=== PATIENT | female | born 1945 | race Caucasian/White ===

== ENCOUNTER 2022-06-03 04:51 | Emergency (ER) | payer MEDICARE, SELFPAY ==
[2022-06-03 05:02] VITALS: BP 122/78; PULSE 78; RESP 16; TEMP 36.7; O2SAT 98; BMI 16.3
--- NOTE | 2022-06-03 05:17 | CRLHL7_ITS ---
For Patients: As a result of the Cures Act, medical imaging exams and procedure reports are released immediately into your electronic medical record. You may view this report before your referring provider. If you have questions, please contact your health care provider. Indication: Pain, swelling and warmth. Question infection? Question foreign body? Technique: A total of three views of the left wrist were acquired. Comparison: None Findings: Bones: Demineralized osseous structures. No bone destruction or other findings of osteomyelitis Joint spaces: Severe osteoarthritis at the 1st carpometacarpal joint. Remodeling deformity the scaphoid. Mild widening of the scapholunate interval, likely chronic. Soft tissues: Soft tissue swelling especially around the thumb. No gas within soft tissues. No radiopaque foreign body. Chondrocalcinosis of the TFCC. Impression: 1. There is no plain film evidence of osteomyelitis. 2. Chronic osseous changes light field degenerative as described above. 3. Soft tissue swelling. No gas within soft tissues. No radiopaque foreign body. Dictated by Teddy Cline MD @ 06/03/2022 6:12:20 AM (Electronically Signed)
[2022-06-03 05:34] LABS: Basophils Percent Auto 2.2 % (0.0-3.0); Eosinophils Percent Auto 5.2 % (0.0-7.0); Hematocrit 31.4 % (33.0-51.0); Hemoglobin* 10.9 gm/dL (12.0-16.0); Immature Granulocytes Pct Auto 0.4 %; Lymphocytes Percent Auto 26.6 % (20-44); Mean Corpuscular HGB Conc 35 gm/dL (32-36); Mean Corpuscular Hemoglobin 35 pg (26-34); Mean Corpuscular Volume 101 fL (80-100); Monocytes Percent Auto 33.9 % (0.0-11.0); Neutrophils Percent Auto 31.7 % (42.0-72.0); Platelet Count* 270 K/uL (140-440); RDW Coefficient of Variation % 12.6 % (11.5-15.5); Red Blood Count 3.12 m/uL (4.00-5.20); White Blood Count* 2.71 K/uL (4.50-11.00)
[2022-06-03 05:43] LABS: Slide Review Reflex No
--- OUTSIDE RECORDS SUMMARY | 2022-06-03 05:46 | XMS_ITS | Continuity of Care Document ---
Author Name Unknown Organization [facility] Address [address] [address] [place] [address] Phone Care Team Providers Care Master Printer Name Role Phone Emelina Manzano CRNA Unavailable Unavailable Allergies, Adverse Reactions, Alerts Substance Reaction Status Criticality oxycodone Active No Information bacitracin Active No Information Medications Medication Instructions Dosage Effective Dates (start - stop) Status Comments Remeron 15 mg tablet take 0.5 Tablet by oral route every day before bedtime 7.5 MG - Active Dulcolax (bisacodyl) 5 mg tablet,delayed release Take 2 tablets per colonoscopy prep instructions - Active Procedure on 11/26/21 Miralax 17 gram/dose oral powder Take as directed by the colon prep instructions received from [facility] - Active Procedure on 11/26/21. sodium bicarbonate 650 mg tablet - Active ranitidine 150 mg capsule take 1 capsule by ORAL route 2 times every day - Active Colazal 750 mg capsule take 3 capsule by oral route 3 times every day for 8 weeks 2250 MG - Active Multiple Vitamins tablet take 1 tablet by oral route every day with food - Active Calcet Creamy Bites 500 mg calcium-400 unit chewable tablet take 1 Tablet by Oral route every day - Active Vitamin D3 2,000 unit tablet take 1 Tablet by Oral route every day 1 Tablet - Active niacin 500 mg tablet take 1 tablet by ORAL route every day 500 MG - Active iron ER 325 mg (65 mg iron) capsule,extended release take 1 Capsule by Oral route every day - Active Procedures Procedure Date Colonoscopy Flex; W/bx 1/mx Level Iv-surg Path Gross/micro 22 Colonoscopy Flex; W/bx 1/mx Level Iv-surg Path Gross/micro 19 Colonoscopy Flex; W/bx 1/mx Level Iv-surg Path Gross/micro 17 Advance Directives Directive Yes / No Effective Date File Name No Information Encounters Encounter Description Practice Location Reason(s) For Visit Diagnoses Date Provider Providers Copied on Encounter [facility], [address] [address], [place], [place], [id number], [place] tel:[phone] [facility] No Information 2 Jose Juan SUSANNA Emelina. [address] [facility], [place], [place], [id number] , [place]. tel: [phone] Referring Provider: Matty Carvajal MD , [address] [facility] [address], [place], [address]. tel:[phone] [facility], [address] [address], [place], [place], [address], [place] tel:[phone] [facility] GI Symptoms or Concerns (chief complaint) Ulcerative colitis, unspecified, without complicationsEn counter for screening for malignant neoplasm of colonUlcerative colitis, unspecified, without complications 2 Wei Starr. [address] [facility], [place], [place], [address] , [place]. tel: [phone] Betzy Vargas MD. [phone] ng Provider: Referral Self. [facility], [address] [address], [place], [place], [address], [place] tel:[phone] [facility] No Information 2 Wei Starr. [address] [facility], [place], [place], [address] , [place]. tel: [phone] [facility], [address] [address], [place], [address], [place] tel:[phone] [facility] Ulcerative colitis, unspecified, without complicationsUl cerative colitis, unspecified, without complications 9 Wie Starr. [address] [place] [address], [facility] [address], [place], [place], [address] , [place]. tel:[phone] Betzy Vargas MD. tel:[phone] ng Provider: Betzy Knapp, [address] [facility], [place], [address]. [phone] [facility], [address] [address], [facility] [place] [address], [place] tel:[phone] [facility] Ulcerative colitis without complications, unspecified locationEncount er for screening for malignant neoplasm of colonUlcerative colitis, unspecified, without complications Wei Starr. [address] [place] [address], [facility] [address], [place], [place], [address] , [place]. tel:[phone] Referring Provider: Moses Mccabe, [address] [facility], [place], [address]. [phone] Family History Family Member Type Diagnosis Age At Onset Father Problem (finding) Mother Problem (finding) Mother Problem (finding) Irritable bowel syndrom e Daughter Problem (finding) Colon polyps Immunizations Vaccine Date Status Comments influenza, high-dose seasona l, quadrivalent, .7mL dose, preservative free administered Note: [facility] bi-direct ional interface ; Source: Other Registry SARS-COV-2 (COVID-19) vaccin e, mRNA, spike protein, LNP, bivalent booster, preservative free, 50 mcg/0.5 mL or 25 mcg/0.25 mL dose administered Note: [facility] bi-direct ional interface ; Source: Other Registry SARS-COV-2 (COVID-19) vaccin e, mRNA, spike protein, LNP, preservative free, 30 mcg/0.3mL dose administered Note: [facility] bi-direct ional interface ; Source: Other Registry influenza, high-dose seasona l, quadrivalent, .7mL dose, preservative free administered Note: [facility] bi-direct ional interface ; Source: Other Registry SARS-COV-2 (COVID-19) vaccin e, mRNA, spike protein, LNP, preservative free, 30 mcg/0.3mL dose administered Note: [facility] bi-direct ional interface ; Source: Other Registry SARS-COV-2 (COVID-19) vaccin e, mRNA, spike protein, LNP, preservative free, 30 mcg/0.3mL dose administered Note: [facility] bi-direct ional interface ; Source: Other Registry SARS-COV-2 (COVID-19) vaccin e, mRNA, spike protein, LNP, preservative free, 30 mcg/0.3mL dose administered Note: [facility] bi-direct ional interface ; Source: Other Registry influenza, seasonal vaccine, quadrivalent, adjuvanted, .5mL dose, preservative free administered Note: [facility] bi-di rectional interface ; Source: Other Registry Seasonal trivalent influenza vaccine, adjuvanted, preservative free administered Note: [facility] bi-direct ional interface ; Source: Other Registry Seasonal trivalent influenza vaccine, adjuvanted, preservative free administered Note: [facility] bi-direct ional interface ; Source: Other Registry zoster vaccine recombinant administered N ote: [facility] bi-directional interface ; Source: Other Registry zoster vaccine recombinant administered N ote: [facility] bi-directional interface ; Source: Other Registry Prevnar administered Note: [facility] bi-d irectional interface ; Source: Other Registry Pneumovax administered Note: [facility] bi-d irectional interface ; Source: Other Registry tetanus toxoid, reduced diphtheria toxoid, and acellular pertussis vaccine, adsorbed administered Note: [facility] b i-directional interface ; Source: Other Registry yellow fever vaccine administered Note: [facility] bi-directional interface ; Source: Other Registry zoster vaccine, live administered Note: [facility] bi-directional interface ; Source: Other Registry Payers Payer name Insurance type Covered green party ID Authoriza tibuffy(s) [employer] Medicare MB [id number] Social History Type Description Quantity Date Captured Comments Sex Female Smoking Status No Information Chief Complaint And Reason For Visit No Information Reason For Referral Reason For Referral No Information Plan Of Treatment Date Type Action Status No Information History Of Present Illness Encounter Date Complaint History Of Prese nt Illness GI Symptoms or Concerns Functional Status Date Functional Assessmen t No Information Instructions Date Instruction Additional Infor mation Colon Cancer Prevention Related to Ulcerative colitis, unspecified, without complications Assessments Type Assessment Date No Information Patient Care Teams Name Effective Dates (start - stop) Status Members No Information
--- OUTSIDE RECORDS SUMMARY | 2022-06-03 05:47 | XMS_ITS | Continuity of Care Document ---
Author Name Unknown Organization [facility] Address [address] [address] [place] [address] Phone Care Team Providers Care Convex Grinder Operator Name Role Phone Emelina Manzano CRNA Unavailable [...] by the colon prep instructions received from [facility] - Active Procedure on 11/26/21. [...] Diagnoses Date Provider Providers Copied on Encounter [facility], [address] [address], [place], [place], [id number], [place] tel:[phone] [facility] No Information 2 Jose Juan SUSANNA Emelina. [address] [facility], [place], [place], [address] , [place]. tel: [phone] Referring Provider: Matty Carvajal MD , [address] [facility] [address], [place], [address]. tel:[phone] [facility], [address] [address], [place], [place], [address], [place] tel:[phone] [facility] GI Symptoms or Concerns (chief complaint) Ulcerative colitis, unspecified, without complicationsEn counter for screening for malignant neoplasm of colonUlcerative colitis, unspecified, without complications 2 Wei Starr. [address] [facility], [place], [place], [address] , [place]. tel: [phone] Betzy Vargas MD. [phone] ng Provider: Referral Self. [facility], [address] [address], [place], [place], [address], [place] tel:[phone] [facility] No Information 2 Wei Starr. [address] [facility], [place], [place], [address] , [place]. tel: [phone] [facility], [address] [address], [place], [address], [place] tel:[phone] [facility] Ulcerative colitis, unspecified, without complicationsUl cerative colitis, unspecified, without complications 9 Wei Starr. [address] [place] [address], [facility] [address], [place], [place], [address] , [place]. tel:[phone] Betzy Vargas MD. tel:[phone] ng Provider: Betzy Knapp, [address] [facility], [place], [address]. [phone] [facility], [address] [address], [facility] [place], [address], [place] tel:[phone] [facility] Ulcerative colitis without complications, unspecified locationEncount er for screening for malignant neoplasm of colonUlcerative colitis, unspecified, without complications Wei Starr. [address] [place] [address], [facility] [address], [place], [place], [address] , [place]. tel:[phone] Referring Provider: Moses Mccabe, [address] [facility], [place], [address]. [phone] Family History Family Member Type Diagnosis Age [...] party ID Authoriza tibuffy(s) [employer] Medicare MB [id number] Social History Type Description Quantity Date Captured [...]
[2022-06-03 05:48] LABS: Chloride* 100 mmol/L (96-114)
[2022-06-03 05:49] LABS: Potassium* 4.2 mmol/L (3.6-5.1); Sodium* 129 mmol/L (135-149)
[2022-06-03 05:51] LABS: Creatinine* 0.5 mg/dL (0.5-1.5); Est. Creatinine Clearance* 30.54; Estimated Glomerular Filt Rate 96 ml/min
[2022-06-03 05:52] LABS: Blood Urea Nitrogen* 16 mg/dL (7-30); Carbon Dioxide* 23 mmol/L (20-32)
[2022-06-03 05:53] LABS: Calcium* 8.8 mg/dL (8.4-10.6); Glucose* 138 mg/dL (60-115)
[2022-06-03 05:55] LABS: C Reactive Protein* 2.3 mg/dL (0.5-1.0)
[2022-06-03 06:09] LABS: Erythrocyte SedimentationRate* 36 mm/hr (2-20)
[2022-06-03] MEDS: KETOROLAC 30 MG/ML inj IVP (06:29)
--- NOTE | 2022-06-03 06:39 | ED.NURSE ---
patient assisted to the bathroom. Patient independent but needed help pulling her pants back up and tying them.
[2022-06-03 07:40] LABS: Uric Acid* 4.2 mg/dL (2.2-8.4)
[2022-06-03 08:39] LABS: Mononuclear WBC Body Fluid* 62 %; Polynuclear WBC Body Fluid* 38 %; RBC, Body Fluid* 7000 Cells/uL; WBC, Body Fluid* 3934 Cells/uL
[2022-06-03 08:40] LABS: BF Clarity* Slightly Cloudy; BF Color Blood Tinged
[2022-06-03 08:41] LABS: BF Total Volume* 0.25
[2022-06-03 08:57] VITALS: BP 122/78; PULSE 78; RESP 16; TEMP 36.7
--- NOTE | 2022-06-03 16:24 | ED.GENADULT ---
HPI - General Adult General Chief complaint: Skin/Abscess/Foreign Body Stated complaint: swollen left hand Time Seen by Provider: 06/03/22 05:10 History of Present Illness HPI narrative: 76-year-old woman presenting to the emergency department with concern of right wrist pain and swelling worsening over the last 3 days. She does endorse that sometimes she has slept on it funny and it will cause pain. Unclear if also swollen at that time. She is not sure what happened here. It is just throbbing and pulsing in significant pain. Has tried acetaminophen. Was seen yesterday in clinic and with apparent concern of cellulitis was given a shot of Rocephin and initiated on cephalexin. She has had now I believe 4 doses of cephalexin. With more pain and swelling was recommended to come to the emergency department sounds like for consideration of IV antibiotics. More recent history also [place] right arm. This apparently has been healing well. She also sustained a small point of injury to the proximal palm of her left hand. Does not believe that there was a retained foreign body. She is expressing some concern that now is having some discomfort radiating into the distal left forearm. She has not had a fever. Does not have a diagnosis of rheumatoid or gout. Does have osteoarthritis and osteopenia. Daughter is a physician in local clinic. Jaky does arrive here with her . Related Data Home Medications Medication Instructions Recorded Confirmed balsalazide 750 mg capsule 750 mg PO DAILY 06/03/22 06/03/22 cephalexin 500 mg capsule 500 mg PO QID 06/03/22 06/03/22 gabapentin 100 mg capsule 100 mg PO 3XD 06/03/22 06/03/22 mirtazapine 15 mg tablet 15 mg PO QPM 06/03/22 06/03/22 Previous Rx's Medication Instructions Recorded celecoxib 100 mg capsule (Celebrex) 100 mg PO BID #30 caps 06/03/22 Allergies Allergy/AdvReac Type Severity Reaction Status Date / Time bacitracin AdvReac Verified 06/03/22 05:05 oxycodone [From OxyContin] AdvReac Verified 06/03/22 05:05 Review of Systems Status of ROS: Reports: 6 or more systems reviewed and unremarkable except as noted in History and below PFSH PFSH Social History Do you use any of these nicotine containing products: None Non-prescribed substance use: denies use Exam Narrative: Exam Narrative: Pleasant. NAD. Fully alert. Favoring the left wrist. Breathing easily. Exam of the skin shows some small healing abrasions with mild appropriate surrounding inflammatory changes on the right forearm. Generally quite thin in her arms. The left arm without notable abrasions. There is a sub cm area of erythema in the proximal palmar crease apparently sustained from the fall. I do not see surrounding inflammatory changes nor palpate any foreign body. The left wrist however is rather swollen, soft. Warm. Extends to the dorsum of the hand as well and may be even to the fingers. Any manipulation of the wrist does cause a good deal of pain. More erythema is around the base of the thumb. I do not appreciate induration of the skin though. Changes I think appear to be primarily related to a joint effusion. Const: Vital Signs, click to edit/add: Vital Signs - 24 hr 06/03/22 05:02 06/03/22 08:57 Temperature 98.1 F 98.1 F Pulse Rate [Left P ulse Oximeter] 78 78 Respiratory Rate 16 16 Blood Pressure [Le ft Upper Arm] 122/78 122/78 Pulse Oximetry 98 Oxygen Delivery Me thod Room Air Documenting provider has reviewed patient's vital signs: yes Course Vital Signs Vital signs: Initial Vital Signs Temperature 98.1 F 06/03/22 05:02 Temperature Source Temporal Artery Scan 06/03/22 05:02 Pulse Rate 78 06/03/22 05:02 Pulse Rhythm Regular 06/03/22 05:02 Respiratory Rate 16 06/03/22 05:02 Blood Pressure 122/78 06/03/22 05:02 Blood Pressure Mean 92 06/03/22 05:02 Blood Pressure Position Sitting 06/03/22 05:02 Pulse Oximetry 98 06/03/22 05:02 Oxygen Delivery Method Room Air 06/03/22 05:02 Vital Signs Temperature 98.1 F 06/03/22 05:02 Pulse Rate 78 06/03/22 05:02 Respiratory Rate 16 06/03/22 05:02 Blood Pressure 122/78 06/03/22 05:02 Pulse Oximetry 98 06/03/22 05:02 Oxygen Delivery Method Room Air 06/03/22 05:02 Temperature 98.1 F 06/03/22 08:57 Pulse Rate 78 06/03/22 08:57 Respiratory Rate 16 06/03/22 08:57 Blood Pressure 122/78 06/03/22 08:57 Pulse Oximetry 98 06/03/22 05:02 Oxygen Delivery Method Room Air 06/03/22 05:02 Medical Decision Making MDM Narrative Medical decision making narrative: While the wrist is certainly swollen and warm, does not have the redness and induration directly of the skin that I might associate with cellulitis. I also do not think that has the degree of discomfort that I would anticipate with his degree of swelling from a potentially septic joint. She does not have fever either. I think this is an inflamed joint more related to osteoarthritis. I think x-rays would be helpful looking for fracture that may have been more occult sustained in the fall. Will be checking labs against yesterdays. However will place IV in area that might be sustained if needed outpatient IV antibiotics. Was given ketorolac here in the emergency department; this did not appear to affect pain whole lot. Labs are similar to yesterday. Reviewing records shows chronically lower white count and some hyponatremia similar to prior. CRP is similar to yesterday and ESR at 36; not terribly elevated. Did add on uric acid normal at 4.2. I still suspect that this is primarily inflamed arthritic joint. I think wrist splint would be helpful. I place a cinch lock wrist brace; she says that has been wearing a small wrist splint I believe this is a Ramesh which I think is rather limited in its affect. I am not sure that would jump ship from antibiotics though I also do not see a cellulitis or septic joint here either and not convinced that antibiotics are warranted but probably best be prudent. Daughter expressing further concern wondering if Orthopedics might be available. Thankfully Dr. Juan is available to assess. He does also tap the joint noting typical joint fluid which he will send for further evaluation. Concurs that likely aseptic joint effusion. Discussed medications including NSAIDs as well as prednisone. Jaky would prefer offer of Celebrex as suggested by Dr. Juan. see patient discharge plan Medical Records Medical records reviewed: Yes I reviewed the patient's medical records Lab Data Lab results reviewed: Yes I reviewed the patient's lab results Labs: Lab Results 06/03/22 06/03/22 Range/Units 05:29 07:50 WBC 2.71 L (4.50-11.00) K/uL RBC 3.12 L (4.00-5.20) m/uL Hgb 10.9 L (12.0-16.0) gm/dL Hct 31.4 L (33.0-51.0) % MCV 101 H (80-100) fL MCH 35 H (26-34) pg MCHC 35 (32-36) gm/dL RDW Coeff of [place] 12.6 (11.5-15.5) % Plt Count 270 (140-440) K/uL Neut % (Auto) 31.7 L (42.0-72.0) % Lymph % (Auto) 26.6 (20-44) % [place] % (Auto) 33.9 H (0.0-11.0) % Eos % (Auto) 5.2 (0.0-7.0) % Baso % (Auto) 2.2 (0.0-3.0) % Neut # (Auto) 0.90 L (1.7-7.0) K/uL Lymph # (Auto) 0.70 L (0.90-2.90) K/uL [place] # (Auto) 0.90 (0.00-0.90) K/UL Eos # (Auto) 0.10 (0.00-0.50) K/uL Baso # (Auto) 0.10 (0.00-0.30) K/uL ESR 36 H (2-20) mm/hr Sodium 129 L (135-149) mmol/L Potassium 4.2 (3.6-5.1) mmol/L Chloride 100 (96-114) mmol/L Carbon Dioxide 23 (20-32) mmol/L BUN 16 (7-30) mg/dL Creatinine 0.5 (0.5-1.5) mg/dL Estimated Creat Clear 30.54 Estimated GFR 96 ml/min Glucose 138 H (60-115) mg/dL Uric Acid 4.2 (2.2-8.4) mg/dL Calcium 8.8 (8.4-10.6) mg/dL C-Reactive Protein 2.3 H (0.5-1.0) mg/dL Fluid Volume 0.25 Fluid Color Blood Tinged A Fluid Appearance Slightly Cloudy A Fluid WBC 3934 Cells/uL Fluid RBC 7000 Cells/uL Fluid Polynuclear WBCs 38 % Fluid Mononuclear WBCs 62 % Discharge Plan Discharge Clinical Impression: Osteoarthritis, Wrist joint inflamed Patient Disposition: Home w/ Parent or Adult Condition: Stable Additional Instructions: Try to wear at least one of the braces initially over the next 3 - 4 days to keep your wrist from moving too much/becoming further aggravated. Might elevate for comfort. Icing might help you feel better. If you are going to do that I would do that 2 to 3 times a day over the next few days. Can take the Celebrex as prescribed. Also I suppose I would finish the course of cephalexin as prescribed. Follow-up with Dr. Juan as planned. Looks like you're in good hands otherwise. Your uric acid was normal here at 4.2 Prescriptions: New celecoxib [Celebrex] 100 mg capsule 100 mg PO BID Qty: 30 0RF No Action cephalexin 500 mg capsule 500 mg PO QID balsalazide 750 mg capsule 750 mg PO DAILY mirtazapine 15 mg tablet 15 mg PO QPM gabapentin 100 mg capsule 100 mg PO 3XD Follow Up/Referrals: Jessika Vargas MD [Primary Care Provider] - Stand Alone Forms: [employer] Info Instructions
--- NOTE | 2022-07-03 12:19 | PM.ORCN ---
History of Present Illness HPI Date Seen: 06/03/22 Consult date: 06/03/22 Requesting physician: Ayo Umanzor Chief complaint: swollen left hand Narrative: Kasey is a pleasant 76-year-old female. She presents to the [facility] Emergency Room on 06/03/2022 with concern for left wrist pain, swelling, erythema, and warmth worsening over the last 3 days. The day before, she was seen in clinic with concern for possible cellulitis of this hand (dorsal more than volar). She was given a shot of Rocephin and started on oral Keflex. She has not noted significant change in her symptoms. She denies fevers, chills, or rigors. No history of rheumatoid arthritis. No history of gout. * her daughter is Benson Sonja. Dr. Umanzor has seen the patient. His suspicion is more for possible cellulitis as opposed to septic wrist arthritis. I was able to coordinate care with him both before and after seeing the patient. Review of Systems Narrative: No fevers or chills. PFSH PFSH Medical History Ulcerative colitis ?K51.90 - Ulcerative colitis, unspecified, without complications (ICD-10) Surgical History H/O unilateral salpingectomy ?Z90.79 - Acquired absence of other genital organ(s) (ICD-10) S/P nerve repair ?Z98.890 - Other specified postprocedural states (ICD-10) Family History Mother Heart disease Father Osteoarthritis Social History Smoking Status: Former smoker What tobacco products do you use: cigarettes Smoking quit date/years: >15 years ago Do you use any of these nicotine containing products: None How often do you have a drink containing alcohol: 4 or more times a week How many standard drinks containing alcohol do you have on a typical day: 1 or 2 AUDIT-C Alcohol total score: 4 Non-prescribed substance use: denies use Are you now , , , , never or living with a partner: Social isolation score (0-1 are the most socially isolated patients): 1 Meds Home Medications and Allergies Home Medications Medication Instructions Recorded Confirmed Type balsalazide 750 mg capsule 750 mg PO DAILY 06/03/22 06/06/22 History mirtazapine 15 mg tablet 15 mg PO QPM 06/03/22 06/06/22 History fluoride (sodium) 1.1 % dental gel PO QPM 06/10/22 06/10/22 History sodium chloride 1,000 mg soluble mg PO 06/10/22 06/10/22 History tablet Allergies Allergy/AdvReac Type Severity Reaction Status Date / Time bacitracin AdvReac Verified 06/10/22 15:48 oxycodone [From OxyContin] AdvReac Verified 06/10/22 15:48 Ortho Exam Narrative Exam Narrative: Upon my interview, the patient is able to provide the history. She is resting in the emergency room bed, supine. In no acute distress. Relatively comfortable. Left hand exam shows generalized swelling about the wrist, hand, and fingers. Mild erythema in the same location. Blanchable. Neurologic intact in the radial, ulnar, and median nerves to sensory light touch and motor function. 2+ radial pulse. Digit tips pain, walk are brisk capillary refill. Effusion of the left wrist is small to moderate. Passive range of motion of the wrist produces minimal pain. Active motion produces some dorsal wrist pain. There is limited wrist range of motion for the contralateral side partly due to the arthritic state but partly due to the swelling and effusion. She has hyper extended thumb MCP joint incidentally along with more prominent thumb CMC joint suspicious of thumb CMC osteoarthrosis. Results Diagnostic results Additional Comments: Three views of the left wrist from [facility] dated 06/03/2022 ordered by different provider in reviewed by me. This shows severe thumb CMC osteoarthrosis, radial subluxation of metacarpal base, but no other acute fractures or avulsions appreciated. Generalized wrist effusion is noted to be small. No signs of AVN. Slight calcification seen in the TFC region. Procedures Joint Aspiration/Injection Joint Asp./Inject. 1: Time out performed: Yes Side of body: left Joint aspirated: wrist/hand (After topical ethyl chloride spray, an 18 gauge needle was inserted into the left wrist from a dorsal approach through the 3-4 interval. 1.5 mL fluid was aspirated and sent for variety of labs.) Details: without imaging Ultrasound guidance: No Skin prep: Chlorhexidine Needle size used: 18G Fluid obtained: viscous Patient tolerated procedure: well Complications: none Assessment and Plan Assessment and plan (1) Primary osteoarthritis, left wrist: Problem comment: pain resolved Status: Acute (2) Cellulitis of left wrist: Status: Acute Plan I had a good discussion today with Kasey and her daughter, Dr. Casillas. At this time, my suspicion for septic arthritis of the left wrist is low. However, I think it prudent to attempt an aspiration of the left wrist and send the fluid for Gram stain, cell count, cultures, and crystals. We discussed the pros and cons of such an intervention as well as ongoing watchful waiting/nonoperative management. She is open to the aspiration. Therefore, after sterile ChloraPrep of the dorsal aspect of left wrist, an 18 gauge needle was inserted into the radiocarpal articulation near the 3-4 interval. 1.5 mL of a clear, thick, slightly straw-colored, non malodorous fluid was aspirated. She tolerated this well. Band-Aid applied. This will be sent for the things noted above. Beyond that, we will provide the patient with a wrist brace to allow it to rest. I would encourage ice to help calm inflammation. She would like to try Celebrex as an anti-inflammatory medication. She has tried other oral anti-inflammatories in the past such as ibuprofen and Aleve without relief. Once the swelling comes down, I do think she is safe to resume activities as she tolerates. I would like to see her back in approximately 1 week for follow-up. I was able to coordinate care with Dr. Umanzor regarding the patient's current situation, the aspiration, and the ongoing plan.
--- NOTE | 2022-07-08 15:11 | PC.NURSE ---
Received a referral for hematology. reviewed records and requested more labs be done (B-12, Folate, TSH - Retic done and printed). RN called [facility], and requested that MD order and arrange lab work. Also notified referring provider that we will see Kasey for consult in ~2 months time. Contacted pt with this update. Scheduled pt to see Dr. Dolan on 09/08/2022 at 11:00 AM. Will review [facility] chart for lab results prior to MD appt in August.
== END 2022-06-03 08:30 | disposition home or self-care (01) ==
PROVIDERS: Emergency Provider Family Medicine; PCP Family Medicine
DX: M19.031 Primary osteoarthritis, right wrist (principal); M25.431 Effusion, right wrist
CPT/HCPCS: 29125; 36415; 73110; 80048; 84550; 85025; 85651; 86140; 87070; 87075; 87205; 89051; 96374; 99283; 99284; J1885

== ENCOUNTER 2022-09-16 12:18 | Outpatient (RCR) | payer MEDICARE, SELFPAY | END 2023-03-15 23:59 | disposition home or self-care (01) | LOC: CCIC 12:18 | PROVIDERS: PCP Family Medicine; Visit Provider Internal Medicine Hematology & Oncology | DX: D75.9 Disease of blood and blood-forming organs, unspecified (principal); D75.89 Other specified diseases of blood and blood-forming organs; G47.00 Insomnia, unspecified | CPT/HCPCS: 99202; 99205 ==